=== PATIENT | male | born 1995 | race Two or more races ===

== ENCOUNTER 2020-02-04 15:35 | Emergency (ER) | payer OTHER, SELFPAY ==
--- NOTE | ~2020-02-04 | CT_ITS ---
EXAMINATION: CT abd pelvis lumbar w con DATE: 02/04/2020 17:46 INDICATION: Back pain, fever, leg swelling TECHNIQUE: Computed tomography (CT) of the abdomen and pelvis and lumbar spine was performed with 100 cc Omnipaque 350 intravenous contrast. Automated exposure control and iterative reconstruction techn ique were employed. Exam dose: 453.33 mGy-cm total exam DLP. Lumbar COMPARISON: None. FINDINGS: The lung bases are clear. Normal heart size. No pericardial or pleural effusion. The liver, gallbladder, bile ducts, spleen, pancreas, pancreatic duct, and adrenal glands and kidneys are unremarkable. Normal caliber of the abdominal aorta. No intraperitoneal or retroperitoneal or pelvic mass lesion or adenopathy or ascites Normal appendix. There is a prominent amount of fecal material in the rectum and colon; no bowel obstruction, bowel wa ll thickening, pneumatosis or intraperitoneal free air is detected. Included skeletal structures are unremarkable. Normal alignment of the lumbar spine. No fracture or s uspicious osteolytic or osteoblastic lesions. No spondylolysis or spondylolisthesis. Lumbar and lumbo sacral interspaces are well preserved. IMPRESSION: No significant abnormality Reviewed, dictated and finalized at [facility]. Reviewed, dictated and finalized at [facility]. IMPRESSION: No significant abnormality
[2020-02-04 15:39] VITALS: BP 134/83; PULSE 112; RESP 18; TEMP 37.2; O2SAT 100
--- NOTE | 2020-02-04 16:03 | ED.BACK ---
HPI - Back Pain/Injury General Chief Complaint: Back Pain/Injury Stated Complaint: Mult. complaints Time Seen by Provider: 02/04/20 15:42 Source: patient Mode of arrival: ambulatory Limitations: no limitations History of Present Illness HPI Narrative: This patient is a 24 year old male who presents for evaluation of lower back pain. He reports he developed lower back pain 2 weeks ago. HE has had constant pain and it is worse with standing up and moving. He also reports he has pain to his bilateral toes. He reports his legs were swollen 2 weeks ago but they are not now. He also reports subjective fever at night but during they day his temperature seems normal. He denies numbness or tingling. He denies abdominal pain, urinary retention , incontinence. MD elicited complaint: back pain Related Data Allergies Allergy/AdvReac Type Severity Reaction Status Date / Time No Known Allergies Allergy Verified 02/04/20 15:41 Review of Systems Review of Systems: All systems reviewed & are unremarkable except as noted in HPI and below Constitutional: Constitutional: Reports fever(s) Cardiovascular: Cardiovascular: Denies chest pain Respiratory: Respiratory: Denies dyspnea Gastrointestinal: Gastrointestinal: Denies abdominal pain, Denies diarrhea, Reports nausea and Denies vomiting Genitourinary: Genitourinary: Denies hematuria, Denies urinary frequency and Denies urinary incontinence Musculoskeletal: Musculoskeletal: Reports back pain [facility] Past Medical History Medical History (Updated 02/05/20 @ 00:00 by Trace Hood) Patient denies medical problems Social History Social History (Updated 02/04/20 @ 16:06 by Lydia Murguia MD) Smoking status: Never smoker Gender identity (if verbalized by the patient): Male Exam Const: General: alert Orientation/consciousness: patient oriented x3 Other: mild distres Eyes: Pupils: Equal, round and reactive pupils present EOM: EOMs intact bilaterally Neck: Neck: no lymphadenopathy Resp: Effort & Inspection: normal respiratory effort and no retractions Auscultation: clear to auscultation bilaterally Cardio: Rate: regular rate Rhythm: regular rhythm Heart sounds: no murmurs Other: bilateral pedal palpable pulse GI: GI Palp: Yes Soft to palpation, Yes Tenderness to palpation present (GI) (mild suprapubic), No Guarding due to palpation present (GI), No Rigid due to palpation and No Hernia present Auscultation: normal bowel sounds Back/Spine/Pelvis: Back: no CVA tenderness Thoracic/Lumbar Spine: paraspinal muscle tenderness and lumbar spinal tenderness at L5 Skin: General skin exam: normal color Rashes: no rashes Neuro: General: patient oriented x3 and moves all extremities Course Reevaluation(s) Reevaluation #1: patient presented with subjective fever, back pain, slightly tachycardic. He is able to walk slowly but had significant pain in back with lifting legs. No diskitis no abscess. He had some improvement with pain with Toradol. He is taking a medication from [facility] with ibuprofen and acetaminophen Date: 02/04/20 Time: 18:06 Vital Signs Vital signs: Vital Signs Temperature 99 F 02/04/20 15:39 Pulse Rate 112 H 02/04/20 15:39 Respiratory Rate 18 02/04/20 15:39 Blood Pressure 134/83 02/04/20 15:39 Pulse Oximetry 100 02/04/20 15:39 Temperature 99 F 02/04/20 15:39 Pulse Rate 91 02/04/20 19:00 Respiratory Rate 16 02/04/20 19:00 Blood Pressure 142/76 H 02/04/20 19:00 Pulse Oximetry 99 02/04/20 19:00 MDM - Back Pain/Injury Lab Data Attestation: I reviewed the patient's lab results. Result diagrams: 02/04/20 16:11 02/04/20 16:11 Labs: Lab Results 02/04/20 02/04/20 02/04/20 Range/Units 16:11 16:11 16:11 WBC 10.7 H (4.5-10.0) K/mm3 RBC 5.18 (4.6-6.20) M/mm3 Hgb 14.5 (14.0-18.0) g/dL Hct 42.6 (42.0-52.0) % MCV 82.2 (80-100) fl MCH 28.0 (26-34) pg MC
[2020-02-04] MEDS: KETOROLAC 30 MG/ML VIAL (*BKC) IV PUSH (16:40)
[2020-02-04 17:06] LABS: Basophils Percent Auto 0.3 % (0.2-1.2); Eosinophils Percent Auto 0.3 % (0-4.4); Hematocrit 42.6 % (42.0-52.0); Hemoglobin 14.5 g/dL (14.0-18.0); Immature Granulocyte Absolute 0.04 K/mm3 (0.00-0.031); Immature Granulocyte Percent A 0.4 % (0-0.5); Lymphocytes Absolute Auto 2.41 K/mm3 (0.9-3.2); Lymphocytes Percent Auto 22.5 % (18.3-44.2); Mean Corpuscular Volume 82.2 fl (80-100); Mean Platelet Volume 8.4 fl (7.4-10.4); Monocytes Percent Auto 9.6 % (2.6-8.5); Neutrophils Absolute Auto 7.2 K/mm3 (1.3-6.7); Neutrophils Percent Auto 66.9 % (45.5-73.1); Platelet Count Result 408 k/mm3 (150-375); Red Blood Count 5.18 M/mm3 (4.6-6.20); Red Cell Distribution Width 12.1 % (11.5-14.5); White Blood Count 10.7 K/mm3 (4.5-10.0)
[2020-02-04 17:07] LABS: Appearance Urine Clear (Clear); Blood Urine Negative (Negative); Color Urine Yellow (Yellow); Glucose Urine UA Negative (Negative); Ketones Urine Negative (Negative); Protein Urine Negative (Negative)
[2020-02-04 17:08] LABS: Add Urine Microscopic? NO; Bilirubin Urine Negative (Negative); Leukocyte Esterase Ur Negative LEU/UL (Negative); Nitrate Urine Negative (Negative); Urobilinogen Urine Negative mg/dL (<2.0)
[2020-02-04 17:09] LABS: Amorphous Sediment Urine Few; Mucus Urine Rare /lpf; WBC Urine 0-3 /hpf
[2020-02-04 17:18] LABS: Lactic Acid Reflex 0.9 mmol/L (0.7-2.1)
[2020-02-04 17:20] LABS: Alanine Aminotransferase 24 U/L (4-50); Albumin Level 4.1 g/dL (3.5-5.1); Alkaline Phosphatase 72 U/L (38-126); Anion Gap 11 mmol/L (8-16); Aspartate Amino Transferase 19 U/L (17-59); Bilirubin,Total 0.9 mg/dL (0.2-1.3); Blood Urea Nitrogen 13 mg/dL (9-20); CRP 3.6 mg/dL (<1.0); Carbon Dioxide 26 mmol/L (22-30); Chloride 101 mmol/L (98-107); Estimated CRCL calculation 98 ml/min; Estimated Glomerular Filt Rate > 60; Glucose 96 mg/dL (75-110); Potassium 3.9 mmol/L (3.4-5.0); Sodium 138 mmol/L (137-145)
[2020-02-04 17:43] LABS: Erythrocyte Sedimentation Rate 26 mm/hr (0-20)
[2020-02-04 19:00] VITALS: BP 142/76; PULSE 91; RESP 16; O2SAT 99
== END 2020-02-04 19:01 | disposition home or self-care (01) ==
PROVIDERS: Emergency Provider General Practice
DX: M54.5 Low back pain (principal)
CPT/HCPCS: 36415; 72132; 74177; 80053; 81003; 83605; 85025; 85652; 86140; 96374; 99284; J1885; Q9967

== ENCOUNTER 2020-02-13 14:11 | Emergency (ER) | payer OTHER, SELFPAY ==
--- NOTE | ~2020-02-13 | XR_ITS ---
XR elbow LT min 3V 02/13/2020 16:33 Indication: Left elbow pain. No acute injury. Procedure: 4 views left elbow Comparison: No prior studies for comparison. Findings: No fracture, subluxation or dislocation. There is displacement of the ventral fat pad, cons istent with joint effusion. No foreign bodies. Normal anatomic alignment. Impression: 1: Moderate joint effusion. Reviewed, dictated and finalized at [facility]. Impression: 1: Moderate joint effusion.
--- NOTE | ~2020-02-13 | XR_ITS ---
EXAMINATION: XR foot RT min 3V DATE: 02/13/2020 16:38 INDICATION: Right foot pain and swelling. TECHNIQUE: 4 views of right foot were obtained. COMPARISON: None. FINDINGS: There is a chip fracture of dorsal lateral aspect of anterior process of calcaneus. Joint s paces are normal. IMPRESSION: 1. Age-indeterminate chip fracture of dorsal lateral aspect of anterior process of calcaneus. Reviewed, dictated and finalized at location [facility].
--- NOTE | ~2020-02-13 | XR_ITS ---
XR foot LT min 3V 02/13/2020 16:38 INDICATION: Left foot pain and swelling. PROCEDURE: 4 views left foot COMPARISON: No prior studies for comparison. FINDINGS: Fracture, dislocation or subluxation is not identified. Lisfranc joint is intact. The soft tissues appear within normal limits. No foreign bodies are identified. IMPRESSION: 1: NO ACUTE BONE OR JOINT ABNORMALITY IDENTIFIED. Reviewed, dictated and finalized at location [facility].
--- NOTE | ~2020-02-13 | XR_ITS ---
XR hand RT min 3V 02/13/2020 16:38 INDICATION: Right hand pain PROCEDURE: 3 views right hand COMPARISON: No prior studies for comparison. FINDINGS: Fracture, dislocation or subluxation is not identified. The soft tissues appear within norm al limits. No foreign bodies are identified. IMPRESSION: 1: NO ACUTE BONE OR JOINT ABNORMALITY IDENTIFIED. Reviewed, dictated and finalized at location [facility].
--- NOTE | ~2020-02-13 | XR_ITS ---
EXAMINATION: XR hand LT min 3V DATE: 02/13/2020 16:38 INDICATION: Left hand pain and swelling. TECHNIQUE: 3 views of left hand were obtained. COMPARISON: None. FINDINGS: Bone alignment is normal. No fracture. Joint spaces are well maintained. IMPRESSION: 1. Normal left hand. Reviewed, dictated and finalized at [facility]. IMPRESSION: 1. Normal left hand.
[2020-02-13 14:37] VITALS: BP 129/84; PULSE 136; RESP 18; TEMP 37.1; O2SAT 99
--- NOTE | 2020-02-13 15:25 | ECG_ITS ---
Measurements Intervals [place] Rate: 123 P: 52 NE: 120 QRS: 53 QRSD: 81 T: 55 QT: 297 QTc: 426 Interpretive Statements SINUS TACHYCARDIA EARLY PRECORDIAL R/S TRANSITION BASELINE ARTIFACT- I, II, AVR, AVL ABNORMAL ECG Electronically Signed On 02-13-2020 15:59:43 CDT by Hakeem Hackett D.O.
[2020-02-13 16:18] LABS: Basophils Percent Auto 0.2 % (0.2-1.2); Eosinophils Percent Auto 0.3 % (0-4.4); Hematocrit 42.9 % (42.0-52.0); Hemoglobin 14.6 g/dL (14.0-18.0); Immature Granulocyte Absolute 0.03 K/mm3 (0.00-0.031); Immature Granulocyte Percent A 0.3 % (0-0.5); Lymphocytes Absolute Auto 2.77 K/mm3 (0.9-3.2); Lymphocytes Percent Auto 23.3 % (18.3-44.2); Mean Corpuscular Hemoglobin 27.9 pg (26-34); Mean Platelet Volume 8.2 fl (7.4-10.4); Monocytes Absolute Auto 1.2 K/mm3 (0.1-0.6); Monocytes Percent Auto 10.4 % (2.6-8.5); Neutrophils Absolute Auto 7.8 K/mm3 (1.3-6.7); Neutrophils Percent Auto 65.5 % (45.5-73.1); Platelet Count Result 338 k/mm3 (150-375); Red Blood Count 5.23 M/mm3 (4.6-6.20); Red Cell Distribution Width 12.2 % (11.5-14.5); White Blood Count 11.9 K/mm3 (4.5-10.0)
[2020-02-13 16:31] LABS: Alanine Aminotransferase 20 U/L (4-50); Albumin Level 4.2 g/dL (3.5-5.1); Alkaline Phosphatase 76 U/L (38-126); Anion Gap 10 mmol/L (8-16); Aspartate Amino Transferase 20 U/L (17-59); Bilirubin,Total 1.4 mg/dL (0.2-1.3); Blood Urea Nitrogen 11 mg/dL (9-20); Calcium 9.2 mg/dL (8.4-10.2); Carbon Dioxide 26 mmol/L (22-30); Chloride 100 mmol/L (98-107); Estimated CRCL calculation 118 ml/min; Estimated Glomerular Filt Rate > 60; Glucose 108 mg/dL (75-110); Sodium 136 mmol/L (137-145)
[2020-02-13 16:33] LABS: Rheumatoid Factor < 8.6 IU/ML (<12)
[2020-02-13 16:43] LABS: Erythrocyte Sedimentation Rate 26 mm/hr (0-20)
--- NOTE | 2020-02-13 17:12 | ED.EXTPRO ---
HPI - Extremity Problem General Chief complaint: Extremity Problem,Nontraumatic Stated complaint: back pain/ extremetity swelling Time Seen by Provider: 02/13/20 14:56 Source: patient Mode of arrival: ambulatory Limitations: no limitations History of Present Illness HPI Narrative: Patient presents with chief complaint of pain in his right hand and bilateral feet that have been present for over a month. Patient was evaluated in this emergency department on 02-05-2020 and had blood work and a CT scan which were negative for acute findings. 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 Patient states when he attempted to follow-up he was told to come back to the emergency department for further evaluation instead of being evaluated at [facility]. Patient states that the Toradol and cyclobenzaprine that were prescribed in the emergency department were helpful but since he has run out of the pain has returned. Patient states denies diagnosis of any autoimmune diseases such as rheumatoid arthritis, multiple sclerosis. Patient denies any fever, chills, nausea, vomiting, diarrhea. Patient denies any direct trauma to the areas. Related Data Allergies Allergy/AdvReac Type Severity Reaction Status Date / Time No Known Allergies Allergy Verified 02/13/20 14:41 Review of Systems Review of Systems: Narrative: CONSTITUTIONAL: Denies fever, chills, or sweats. EYES: Denies visual changes, redness, or discharge. ENT: Denies rhinorrhea, congestion, sore throat, or otalgia. CARDIOVASCULAR: Denies chest pain, palpitations, or edema. RESPIRATORY: Denies cough or dyspnea. GASTROINTESTINAL: Denies abdominal pain, nausea, vomiting, or diarrhea. GENITOURINARY: Denies dysuria or hematuria. SKIN: Denies rash or itching. MUSCULOSKELETAL: Reports right hand and bilateral feet pain denies myalgia, or joint pain NEUROLOGIC: Denies headache, numbness, dizziness, or weakness. PSYCHIATRIC: Denies anxiety or depression. PMFSH Past Medical History Medical History (Updated 02/13/20 @ 17:19 by Anson Dominguez PA-C) Patient denies medical problems Social History Social History (Updated 02/04/20 @ 16:06 by Lydia Murguia MD) Smoking status: Never smoker Gender identity (if verbalized by the patient): Male Exam Narrative: Exam Narrative: GENERAL: Well-appearing, well-nourished. HEAD: Normocephalic, atraumatic. EYES: PERRLA and EOMI. ENT: Nares clear, no rhinorrhea or epistaxis. Mucous membranes moist. Oropharynx without tonsillar hypertrophy exudate or other lesions. Bilateral TMs pearly henry nonbulging NECK: Supple. No adenopathy or masses. No vertebral tenderness or loss of ROM. CHEST: Clear to auscultation. No respiratory distress. No wheezes rales or rhonchi HEART: Regular rate and rhythm. Normal peripheral pulses. EXTREMITIES: Decreased flexion extension right and in bilateral feet due to pain per patient. Patient holds them in a stiff position. I am able to move them in passive motion but patient withdraws due to discomfort. There is no signs of ecchymosis, lesions or erythema. I do not appreciate significant swelling. SKIN: Warm, dry, no rash. NEURO: No focal deficits. Alert and oriented x3. PSYCH: Normal mood and affect. Course Vital Signs Vital signs: Vital Signs Temperature 98.7 F 02/13/20 14:37 Pulse Rate 136 H 02/13/20 14:37 Respiratory Rate 18 02/13/20 14:37 Blood Pressure 129/84 02/13/20 14:37 Pulse Oximetry 99 02/13/20 14:37 Temperature 98.7 F 02/13/20 14:37 Pulse Rate 136 H 02/13/20 14:37 Respiratory Rate 18 02/13/20 14:37 Blood Pressure 129/84 02/13/20 14:37 Pulse Oximetry 99 02/13/20 14:37 MDM - Extremity (Nontraumatic) MDM Narrative Medical decision making narrative: Patient is referred to primary care for further investigation into his symptoms. There are no signs of bony abnormalities. His blood work is stable. Patient instructe
[2020-02-13 17:28] VITALS: BP 132/80; PULSE 78; RESP 20; O2SAT 99
[2020-02-13] MEDS: KETOROLAC (*BKC) 60 MG/2 ML VIAL 30 MG IM (17:39)
== END 2020-02-13 17:30 | disposition home or self-care (01) ==
PROVIDERS: Physician Assistant; Emergency Provider Emergency Medicine; Referring Provider Internal Medicine
DX: M79.641 Pain in right hand (principal); M79.672 Pain in left foot; M79.671 Pain in right foot; R00.0 Tachycardia, unspecified; R93.6 Abnormal findings on diagnostic imaging of limbs; M25.422 Effusion, left elbow
CPT/HCPCS: 36415; 73080; 73130; 73630; 80053; 85025; 85652; 86038; 86430; 93005; 96372; 99284; J1885

== ENCOUNTER 2020-11-09 07:51 | Emergency (ER) | payer BC, SELFPAY ==
--- NOTE | ~2020-11-09 | XR_ITS ---
EXAMINATION: XR shoulder RT min 2V INDICATION: Right shoulder pain TECHNIQUE: Four views of the right shoulder are submitted. COMPARISON: None FINDINGS: Normal alignment. No fracture. Glenohumeral and acromioclavicular joint spaces are normal. Soft tissues are unremarkable. IMPRESSION: 1. No acute osseous abnormality. Reviewed, dictated and finalized at [facility].
--- NOTE | ~2020-11-09 | CT_ITS ---
EXAMINATION: CT brain wo con INDICATION: Head injury COMPARISON: None TECHNIQUE: Standard unenhanced head CT. The dose-length product (DLP) was 605.33 mGy-cm. The mA was a djusted according to patient size. Iterative reconstruction technique was employed. FINDINGS: There is no intracranial hemorrhage, acute infarction, or abnormal mass lesion. The ventric les are normal. There is no abnormal mass effect or midline shift. The henry-white matter differentiat ion is normal. The basal cisterns are patent. The orbits are normal. The paranasal sinuses, mastoids and calvarium are normal. IMPRESSION: 1. No acute intracranial abnormality. Reviewed, dictated and finalized at location [facility].
[2020-11-09 07:52] VITALS: BP 138/98; PULSE 101; RESP 20; TEMP 37.2; O2SAT 99
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
[2020-11-09] MEDS: IBUPROFEN 600 MG TABLET PO (08:35)
[2020-11-09 08:37] VITALS: BP 125/71; PULSE 92; RESP 15; O2SAT 98
[2020-11-09 09:25] VITALS: BP 133/89; PULSE 85; RESP 16; O2SAT 100
== END 2020-11-09 09:27 | disposition home or self-care (01) ==
PROVIDERS: Emergency Provider Emergency Medicine
DX: S09.90XA Unspecified injury of head, initial encounter (principal); S16.1XXA Strain of muscle, fascia and tendon at neck level, initial encounter; V48.5XXA Car driver injured in noncollision transport accident in traffic accident, initial encounter
CPT/HCPCS: 70450; 73030; 99284; A9270